=== PATIENT | female | born 1965 | race Caucasian/White ===

== ENCOUNTER → 2025-03-18 | Outpatient (CLI) | payer OTHER ==
[~2025-03-18] MED LIST: DILT120 PO; FURO20 PO; HYDR1TAB94 PO; IBUP800 PO; LEVSOD75 PO; METO25ER PO; POTCHL20ER PO; TIZA4 PO
== END ==
LOC: LAB SHORT 09:15 → LAB 09:15
DX: N39.0 Urinary tract infection, site not specified (principal)
CPT/HCPCS: 87077; 87086; 87147; 87186